=== PATIENT | female | born 1965 | race Two or more races ===

== ENCOUNTER → 2024-10-16 | Outpatient (CLI) | payer OTHER, MEDICAID, SELFPAY ==
--- NOTE | 2024-10-16 15:15 | XR_ITS ---
Examination: Screening digital mammography, bilateral Computer aided detection 3-D breast Tomosynthesis, bilateral Date and time of exam: October 16, 2024 1510 hours Compared to mammograms dating to February 13, 2018 Indication: Screening, history right breast cancer Technique: Nonmagnified MLO, CC views of the breasts to been obtained, reconstructed from 3-D Tomosynthesis images. R2 computer aided detection program utilized for evaluation of suspicious masses and/or abnormal calcifications. 3-D Tomosynthesis images obtained. Findings: The breasts are heterogeneously dense, which may obscure small masses Bilateral surgical clips and scar formation right breast consistent with personal history treated right breast cancer Surgical clips upper and central left breast consistent with asymmetric history left breast biopsy Benign calcifications. No interval suspicious masses Impression: BI-RADS category II: Benign Findings. Recommend 1 year follow-up mammogram.
== END | disposition home or self-care (01) ==
LOC: CDIM 14:57
PROVIDERS: Referring Provider Surgery; Visit Provider Surgery
DX: Z12.31 Encounter for screening mammogram for malignant neoplasm of breast (principal); R92.323 Mammographic fibroglandular density, bilateral breasts; R92.1 Mammographic calcification found on diagnostic imaging of breast
CPT/HCPCS: 77063; 77067

== ENCOUNTER → 2024-10-26 | Outpatient (CLI) | payer OTHER, MEDICAID, SELFPAY ==
--- NOTE | 2024-10-26 12:34 | XR_ITS ---
Examination: PA lateral chest 2 views TECHNIQUE: Upright PA lateral chest 2 views Exam date and time: October 26, 2024 1323 hours Comparison January 26, 2022 INDICATIONS: Coughing today. FINDINGS: Mild accentuation perihilar markings No lobar pneumonia Surgical clips overlie the right breast IMPRESSION: Mild bilateral perihilar inflammatory disease pattern
== END | disposition home or self-care (01) ==
LOC: CDIM 12:11
PROVIDERS: Referring Provider Internal Medicine; Visit Provider Internal Medicine
DX: R05.8 Other specified cough (principal)
CPT/HCPCS: 71046

== ENCOUNTER 2025-02-11 15:30 | Outpatient (RCR) | payer OTHER, MEDICAID, SELFPAY ==
--- NOTE | 2025-01-20 15:44 | PT.OIERPT ---
PT OP Initial Eval Patient Information Outpatient Physical Therapy Treatment Date: 01/20/25 Visit Reasons: Right shoulder pain Medical Diagnosis: M25.511 M25.512 Treatment Dx #1: B shoulder pain Treatment Dx #2: Decreased ROM B shoulders Start of Care: 01/20/25 Date of Onset: 1 yr ago Smoking Status Smoking Status: Never smoker Initial Assessment Subjective: Pt is 59 yr old female who reports B shoulder pain after mastectomy in 2022. The shoulders feel tight and painful with reaching [place] somedays. She works at the [employer] and she is able to do work duties with mild soreness. PMH: HTN, DM, allergies, mammoplasty R with radiation Pt goal: to reach up [place] with less stiffness and pain Objective: B shoulder AROM: Strength: ? FF: 150 deg 4-/5 ? Abd: 140 deg 4-/5 ? ER: 90 deg ? HBB: to R glute with pain ? Dayana Galeas: positive Assessment: Pt presents with decreased ROM and strength into abduction consistent with Hx of radiation and soft tissue tightness. She would benefit from skilled therapy to meet goals and has fair rehab potential. Short Term and Detention Goals 1. Ind with HEP ? 2. Improved AROM of R shoulder to at least 150 deg abduction ? 3. Improved strength to 4/5 in all planes ? 4. Pt will reach [place] x10 with <=4/10 pain Treatment Plan ? 1. Manual therapy ? 2. Therex ? 3. Modalities as indicated, moist heat, ice, estim Frequency and Duration: 1-2x a week for 12 weeks plus the evaluation Certification Dates: 01/20/25 to 04/20/25 Procedure Charges OP PT Eval Mod Complex 30 minutes: Yes
--- NOTE | 2025-01-29 14:27 | PT.ODAYNRPT ---
PT Outpatient Daily Note OP Daily Note Outpatient Physical Therapy Treatment Date: 01/29/25 Visit Reasons: Right shoulder pain Subjective: Pt reports mobility is doing ok but continues to have pain and feeling of tightness. Objective: Please see flow sheet for ther ex list. Assessment: Pt tolerated interventions with muscle fatigue and minimal pain. Plan: Continue with POC. Length of Time (minutes) of Treatment: 30 Minutes Procedure Charges Therapeutic Exercise 30 minutes: Yes
--- NOTE | 2025-02-11 18:03 | PT.ODAYNRPT ---
PT Outpatient Daily Note OP Daily Note Outpatient Physical Therapy Treatment Date: 02/11/25 Visit Reasons: Right shoulder pain Subjective: Low pain level today in R shoulder Objective: See F/S for therex Assessment: Low tissue irritability with therex Plan: Continue per POC Length of Time (minutes) of Treatment: 30 Minutes Procedure Charges Therapeutic Exercise 30 minutes: Yes
== END 2025-02-17 23:59 | disposition home or self-care (01) ==
LOC: CPTX 15:30
PROVIDERS: PCP Physician Assistant; Referring Provider Physician Assistant; Visit Provider Physician Assistant
DX: M25.512 Pain in left shoulder (principal); M25.511 Pain in right shoulder; I10 Essential (primary) hypertension; E11.9 Type 2 diabetes mellitus without complications
CPT/HCPCS: 97110; 97162

== ENCOUNTER 2025-03-12 14:30 | Outpatient (RCR) | payer OTHER, MEDICAID, SELFPAY ==
--- NOTE | 2025-02-19 15:03 | PT.ODAYNRPT ---
PT Outpatient Daily Note OP Daily Note Outpatient Physical Therapy Treatment Date: 02/19/25 Visit Reasons: right sholder pain Subjective: Pt reports flexibility is improving, would like to work on strengthening. Objective: Please see flow sheet for ther ex list. Assessment: Progressed strengthening interventions, pt c/o muscle fatigue but no pain to report. Plan: Progress functional strengthening. Length of Time (minutes) of Treatment: 30 Minutes Procedure Charges Therapeutic Exercise 30 minutes: Yes
--- NOTE | 2025-03-05 15:35 | PT.ODAYNRPT ---
PT Outpatient Daily Note OP Daily Note Outpatient Physical Therapy Treatment Date: 03/05/25 Visit Reasons: right sholder pain Subjective: Pt reports R shoulder is stiff and sore today, fell ill last week so she did not get a chance to do exercises as much as she would have liked. Objective: Please see flow sheet for ther ex list. Assessment: Progressing strengthening interventions, pt c/o muscle spasm of R breast during exercises requiring rest breaks in between exercise reps. Plan: Continue with POC. Length of Time (minutes) of Treatment: 30 Minutes Procedure Charges Therapeutic Exercise 30 minutes: Yes
--- NOTE | 2025-03-12 15:01 | PT.ODAYNRPT ---
PT Outpatient Daily Note OP Daily Note Outpatient Physical Therapy Treatment Date: 03/12/25 Visit Reasons: right sholder pain Subjective: Pt reports R shoulder is doing better. Objective: Please see flow sheet for ther ex list. Assessment: Added tricep extension exercise with light thera band, pt completed with good tolerance. Plan: Continue with POC. Length of Time (minutes) of Treatment: 30 Minutes Procedure Charges Therapeutic Exercise 30 minutes: Yes
== END 2025-03-20 23:59 | disposition home or self-care (01) ==
LOC: CPTX 14:30
PROVIDERS: PCP Physician Assistant; Referring Provider Physician Assistant; Visit Provider Physician Assistant
DX: M25.512 Pain in left shoulder (principal); M25.511 Pain in right shoulder; M62.412 Contracture of muscle, left shoulder; M62.411 Contracture of muscle, right shoulder; I10 Essential (primary) hypertension; E11.9 Type 2 diabetes mellitus without complications
CPT/HCPCS: 97110

== ENCOUNTER → 2025-03-19 | Outpatient (CLI) | payer OTHER, MEDICAID, SELFPAY ==
--- NOTE | 2025-03-19 | XR_ITS ---
Examination: Sinus series 3 views TECHNIQUE: Beto Meraz lateral sinus series 3 views Date and time: February 20, 2025 1141 hours Comparison May 28, 2007 INDICATIONS: Sinus pressure and pain several years FINDINGS: Opacity in the frontal ethmoid air cells Mild mucosal thickening maxillary antra and mild haziness in the sphenoid air cells IMPRESSION: Chronic pansinusitis No acute sinusitis
--- NOTE | 2025-03-19 | XR_ITS ---
Examination: Hand, left 3 views Technique: Hand AP, oblique, lateral 3 views Date and time of exam: March 19, 2025 1135 hours INDICATIONS: Injury to the hand one week ago, hand pain FINDINGS: Congenitally shortened fourth metacarpal Moderate osteopenia No acute fracture No dislocation IMPRESSION: No acute fracture
--- NOTE | 2025-03-19 | XR_ITS ---
Examination: Wrist, left 3 views Technique: Wrist AP, oblique, lateral 3 views Date and time of exam: March 19, 2025 1135 hours INDICATIONS: Injury to the wrist one week ago, wrist pain FINDINGS: No acute fracture No dislocation No foreign body IMPRESSION: No acute fracture
== END | disposition home or self-care (01) ==
LOC: CDIM 11:12
PROVIDERS: PCP Physician Assistant; Referring Provider Physician Assistant; Visit Provider Physician Assistant
DX: S63.592A Other specified sprain of left wrist, initial encounter (principal); S63.92XA Sprain of unspecified part of left wrist and hand, initial encounter; X58.XXXA Exposure to other specified factors, initial encounter; J32.4 Chronic pansinusitis
CPT/HCPCS: 70220; 73110; 73130

== ENCOUNTER → 2025-07-26 | Outpatient (CLI) | payer BC, MEDICAID, SELFPAY ==
--- NOTE | 2025-07-26 14:29 | XR_ITS ---
Examination: Lumbar spine, 5 views Technique: Lumbar spine AP, lateral, coned lateral lower lumbar spine, bilateral obliques 5 views Exam date and time: July 26, 2025, 1433 hours INDICATIONS: Low back pain several months radiating down the right leg FINDINGS: Moderate osteopenia Lumbar levoscoliosis 8 degrees Moderate diffuse facet arthropathy No lumbar fracture Advanced disc narrowing L5-S1 No spondylolisthesis Moderate to advanced degenerative change hips bilaterally IMPRESSION: Advanced degenerative disc disease L5-S1 Moderate to advanced bilateral hip osteoarthritis
--- NOTE | 2025-07-26 14:29 | XR_ITS ---
Examination: Bilateral hips, AP pelvis, 5 views Technique: AP, lateral views both hips, AP pelvis, 5 views Exam date and time: July 26, 2025, 1453 hours INDICATIONS: Right hip pain several months. FINDINGS: Moderate osteopenia Bilateral moderate to advanced hip osteoarthritis No hip or pelvic fracture IMPRESSION: Bilateral moderate to advanced hip osteoarthritis
== END | disposition home or self-care (01) ==
PROVIDERS: PCP Physician Assistant; Referring Provider Physician Assistant; Visit Provider Physician Assistant
DX: M51.370 Other intervertebral disc degeneration, lumbosacral region with discogenic back pain only (principal); M16.0 Bilateral primary osteoarthritis of hip
CPT/HCPCS: 72110; 73523

== ENCOUNTER → 2025-10-19 | Outpatient (CLI) | payer BC, MEDICAID, SELFPAY ==
--- NOTE | 2025-10-19 15:45 | XR_ITS ---
Examination: Screening digital mammography, bilateral Computer aided detection 3-D breast Tomosynthesis, bilateral Date and time of exam: 10/19/2025, 4 2:00 p.m. Comparisons: 10/16/2024 Indications: Screening Technique: Nonmagnified MLO, CC views of the breasts to been obtained, reconstructed from 3-D Tomosynthesis images. R2 computer aided detection program utilized for evaluation of suspicious masses and/or abnormal calcifications. 3-D Tomosynthesis images obtained. Technologist: Findings: There are scattered areas of fibroglandular density. Stable postoperative changes. No evidence of abnormal masses or suspicious calcifications. Impression: BI-RADS category 2: Benign findings Recommend 1 year follow-up mammogram
== END | disposition home or self-care (01) ==
LOC: CDIM 15:30
PROVIDERS: Referring Provider Surgery; Visit Provider Surgery
DX: Z12.31 Encounter for screening mammogram for malignant neoplasm of breast (principal); R92.323 Mammographic fibroglandular density, bilateral breasts
CPT/HCPCS: 77063; 77067